=== PATIENT | female | born 1955 | race Two or more races ===

== ENCOUNTER 2025-01-05 10:13 | Outpatient (CLI) | payer OTHER | END 2025-01-05 10:22 | disposition home or self-care (01) | LOC: RAD 10:13 | DX: M17.12 Unilateral primary osteoarthritis, left knee (principal) ==

== ENCOUNTER 2025-06-12 12:25 | Outpatient (CLI) | payer OTHER | END 2025-06-12 12:34 | disposition home or self-care (01) | LOC: RAD 12:25 | DX: M17.12 Unilateral primary osteoarthritis, left knee (principal) ==

== ENCOUNTER 2025-09-11 12:05 | Outpatient (CLI) | payer OTHER | END 2025-09-11 12:08 | disposition home or self-care (01) | LOC: RAD 12:05 | DX: M17.12 Unilateral primary osteoarthritis, left knee (principal) ==

== ENCOUNTER 2025-10-24 08:51 | Outpatient (CLI) | payer OTHER | END 2025-10-24 09:05 | disposition home or self-care (01) | LOC: RAD 08:51 | DX: M54.6 Pain in thoracic spine (principal); M54.50 Low back pain, unspecified; M16.0 Bilateral primary osteoarthritis of hip ==

== ENCOUNTER 2025-11-20 10:12 | Outpatient (CLI) | payer OTHER | END 2025-11-20 10:14 | disposition home or self-care (01) | LOC: NUCLEAR 10:12 | PROVIDERS: ATTEND General Practice | DX: M81.0 Age-related osteoporosis without current pathological fracture (principal) ==